=== PATIENT | female | born 1930 | race Caucasian/White ===

== ENCOUNTER 2019-10-16 22:43 | Inpatient (IN) | payer OTHER, MEDICAID ==
[~2019-10-16] VITALS: Ht 175.3 cm; Wt 80.1 kg
[~2019-10-16 22:43] MED LIST: ASPIRIN EC81 M1 PO; CALCIUM 500 WI1 EAC4 PO; COLACE100 MG PO; GLUMETZA1000 PO; GLYBURIDE 5 MG T5 M1 PO; LORTAB PO; MIRALAX17 GM PO; ONGLYZA5 MG PO; PEPCID AC10 M1 PO; SYNTHROID137 MC1 PO; VASOTEC2.5 MG PO; VITAMIN D325 MC1 PO; ZOCOR 20 MG TAB20 M1 PO
[2019-10-16 22:47] VITALS: BP 99/57
--- NOTE | 2019-10-16 22:50 | NUR ---
COULD NOT GET DL BALES FOR CONSENT FOR TREATMENT. LET CHARGE NURSE EMILIA KNOW.
[2019-10-16] MEDS ORDERED: LASIX 40 MG TAB40 MG PO (22:55)
[2019-10-16] MEDS ORDERED: DILTIAZEM ER180 M2 PO (22:55)
[2019-10-16] MEDS ORDERED: EXELON1 EAC2 TRANSDERM (22:56)
[2019-10-16] MEDS ORDERED: LISINOPRIL2.5 MG PO (22:56)
[2019-10-16] MEDS ORDERED: REMERON15 M2 PO (22:57)
[2019-10-16] MEDS ORDERED: TYLENOL325 MG PO (22:57)
[2019-10-16 23:18] LABS: ABSOLUTE LYMPHOCYTES 0.5 thou/uL (0.8-5.3); ABSOLUTE MONOCYTES 0.4 thou/uL (0.0-1.2); ABSOLUTE NEUTROPHILS 4.7 thou/uL (1.6-8.1); BASOPHILS 0.4 %; EOSINOPHILS 0.1 %; HEMATOCRIT 40.5 % (37.0-47.0); LYMPHOCYTES 8.8 %; MCH 32.1 pg (26.0-34.0); MCHC 34.6 g/dL (28.0-37.0); MCV 92.6 fL (80.0-100.0); MONOCYTES 7.7 %; MPV 8.8 fl. (7.2-11.1); NUCLEATED RBCS 0 /100WBC; PLATELET COUNT* 259 thou/uL (150-400); RBC 4.38 mil/uL (4.20-5.00); RDW-CV 14.2 % (10.5-14.5); WBC 5.6 thou/uL (4.0-11.0)
[2019-10-16 23:24] LABS: CALCIUM 8.1 mg/dL (8.5-10.1); CREATININE 2.3 mg/dL (0.6-1.3); POTASSIUM 4.1 mmol/L (3.5-5.1)
[2019-10-16 23:36] LABS: ALBUMIN 2.5 g/dL (3.4-5.0); MAGNESIUM 1.9 mg/dL (1.8-2.4); TOTAL BILIRUBIN 0.5 mg/dL (<0.1-1.0); TOTAL PROTEIN 6.7 g/dL (6.4-8.2)
[2019-10-17 01:10] LABS: URINE BILIRUBIN NEGATIVE (Negative); URINE BLOOD TRACE (Negative); URINE CLARITY CLEAR; URINE COLOR YELLOW; URINE GLUCOSE-RANDOM NEGATIVE (Negative); URINE KETONES TRACE (Negative); URINE LEUKOCYTES-REFLEX 1+ (Negative); URINE PROTEIN NEGATIVE (Negative); URINE UROBILINOGEN 0.2 E.U./dl (0.2-1.0)
[2019-10-17 01:18] LABS: URINE NITRITE-REFLEX POSITIVE (Negative)
[2019-10-17 02:05] LABS: SQUAMOUS 4-10 Moderate /LPF (0-3); URINE RBC 3-10 Few /HPF (0-2)
[2019-10-17 02:06] LABS: AMORPHOUS URATES Moderate /LPF (None Seen); BACTERIA-REFLEX >30 Many /HPF (None Seen); CASTS None Seen /LPF (None Seen)
[2019-10-17 03:25] VITALS: BP 125/60
[2019-10-17 03:40] VITALS: BP 91/46
[2019-10-17 03:50] VITALS: BP 125/60
[2019-10-17] MEDS ORDERED: DIFLUCAN150 MG PO (05:38)
[2019-10-17] MEDS ORDERED: SENNA PLUS TAB1 EACH PO (05:38)
--- NOTE | 2019-10-17 06:15 | NUR ---
PATIENT ARRIVED TO UNIT FROM ER BY CART IN STABLE CONDITION AT 0345. UNABLE TO STAND TO TRANSFER TO BED. PATIENT ORIENTED TO NAME AND DATE OF . ALSO AWARE WHY SHE CAME TO THE HOSPITAL. MULTPLE PRESSURE ULCERS. (COCCYX, BILAT BUTTICKS-THIGH CREASE AND LATERAL RIGHT ANKLE.) AREAS ON BUTTOCKS AND COCCYX DRESSED AFTER ASSESSMENT AND PHOTOS. ALSO HAS A YEASTY RASH UNDER BREASTS AND GROIN CREASES. HEELS RED AND BOGGY BUT BLANCHABLE. VITAL SIGNS STABLE. AFEBRILE. INCONT BOWEL AND BLADDER. ADMISSION ROUTINES IN PROGRESS. CONTINUE TO MONITOR. FALL PRECAUTIONS IN PLACE.
[2019-10-17 08:28] LABS: CALCIUM 7.3 mg/dL (8.5-10.1); CREATININE 2.1 mg/dL (0.6-1.3); MAGNESIUM 1.9 mg/dL (1.8-2.4); POTASSIUM 3.5 mmol/L (3.5-5.1)
[2019-10-17 09:11] VITALS: BP 115/56
[2019-10-17 15:59] VITALS: BP 116/38
--- NOTE | 2019-10-17 16:47 | NUR ---
PATIENT INCONTINENT OF LARGE AMOUNTS OF URINE THIS SHIFT. IVF INFUSING, PATIENT NOTED TO HAVE PULLED IV OUT. SPOKE WITH DR. MARTINEZ AND OK TO LEAVE IV OUT. PO ABX TO START TONIGHT FOR UTI. TURNED Q2. PATIENT ASSISTED WITH FEEDING. PATIENT ATTEMPTED TO CALL HER SON BUT NO ANSWER. [employer] OFFICER TRACING SINUS RHYTHM/SINUS JUSTIN. COVID PENDING. VITALS STABLE.
[2019-10-17 20:00] VITALS: BP 122/58
[2019-10-18] VITALS: BP 100/48
--- NOTE | 2019-10-18 01:23 | NUR ---
PT ALERT ORIENTED TO SELF. CONFUSED AND CALLS HELP FREQUENTLY. PT TOOK PILLS CRUSHED IN APPLE SAUCE. TURN Q 2 HRS. TELEMETRY SHOWS SR. PT REMOVES TELEMETRY FREQUENTLY. LEADS PLACED ON BACK. [facility]
[2019-10-18 04:00] VITALS: BP 132/52
[2019-10-18 05:43] LABS: CALCIUM 7.9 mg/dL (8.5-10.1); MAGNESIUM 1.9 mg/dL (1.8-2.4); POTASSIUM 3.9 mmol/L (3.5-5.1)
[2019-10-18 08:00] VITALS: BP 112/46
--- NOTE | 2019-10-18 11:04 | NUR ---
WOUND NURSE: PATIENT SEEN TO ADDRESS SKIN LESIONS: RIGHT ANKLE PRESENTS A HEALING STAGE 2 PRESSURE INJURY ON TRI RIGHT LATERAL MALLEOLUS. PRSENTS A DRIED BLISTER WITH NO ACTIVE DRAINAGE AND MEASURES 0.8 X 0.7 X 0.1 CM. PERIWOUND AREA WITH NO REDNESS OR WARMTH. CAPILLARY REFILL IS < 3 SECONDS. CLEANSED WITH SALINE AND APPLIED AQUACEL AG MOISTENED WITH SALINE, THEN COVERED WITH BORDERED FOAM DRESSING. RIGHT UPPPER THIGH WITH A SUPERFICIAL ABRASION MEASURING 0.2 X 0.2 X 0.1 CM AND DRAINING A SMALL AMOUNT OF SEROUS DRAINAGE. WOUND BED IS PINK AND NONGRANULATING. LEFT BUTTCK STAGE 2 PRESSURE INJURY MEASURING 0.3 X 1.0 X 0.1 CM, DRAINING SMALL AMOUNT OF SEROUS DRAINAGE. COCCYX STAGE 3 PRESSURE INJURY MEASURING 0.8 X 0.5 X 0.2 CM, CONTAINS 50% YELLOW SLOUGH, 50% PINKISH-RED GRANULATION TISSUE. SMALL AMOUNT OF SEROUS DRAINAGE. PATIENT INSTRUCTED ON NEED TO REPOSITION HERSELF EVERY 1 TO 2 HOURS TO PROMOTE HEALNG. PATIENT IS CONFUSED AND DISORIENTED AND FOLLOW UP INSTRUCTION WILL BE NECESSARY.
[2019-10-18 12:34] VITALS: BP 122/52
--- NOTE | 2019-10-18 14:51 | EKG ---
[place] [address] ELECTROCARDIOGRAM REPORT Name: RUBEN YEAGER Room: [address]#: [id number] Admission: 10/17/19 Attend Phys: Nav Peguero, Discharge: Date of : 34 Date of Service: 10/16/19 2248 Report #: [id number] THIS REPORT FOR: //name// [facility] ED Test Date: 2019-10-16 Test Time: 22:48:22 Pat Name: RUBEN YEAGER Department: Room: [facility] Gender: F Infrastructure Technician: : [id number] Requested By: Samantha Bustos Order Number: [id number] MD: Ajith Gaston Measurements Intervals [place] Rate: 76 P: -27 HI: 183 QRS: -36 QRSD: 94 T: 31 QT: 467 QTc: 526 Interpretive Statements Sinus rhythm Left axis deviation Low voltage, precordial leads Prolonged QT interval Compared to ECG 09/25/2010 07:25:55 Left-axis deviation now present Prolonged QT interval now present Electronically Signed On 10-18-2019 14:50:13 CDT by Ajith Gaston [email or web address] <ELECTRONICALLY SIGNED> By: Ajith Gaston MD, FAC 10/18/19 1450 2248 2248 Ajith Gaston MD, FAC /EPI
--- NOTE | 2019-10-18 17:11 | NUR ---
SPOKE WITH [facility]. PT.IS A USP CARE PT.THERE. SHE IS WC BOUND. SHE IS A SIT TO STAND LIFT TO TRANSFER INTO WC. SHE FEELS HERSELF. IS CONFUSED AT TIMES. SON,LORENZO, IS HER DPOA. SANJANA WILL FAX COPY OF DPOA TO TO PUT ON PT.S CHART. ATTEMPTED TO CALL LORENZO, BUT NO ANSWER. LEFT VM.
[2019-10-18 17:17] VITALS: BP 142/65; BP 145/65
[2019-10-18 20:30] VITALS: BP 125/46
[2019-10-19 04:00] VITALS: BP 116/53
--- NOTE | 2019-10-19 07:18 | NUR ---
PT ORIENTED TO SELF. ONLY. REFUSING TO WEAR HEART MONITOR LEADS MOST OF SHIFT. SKIN IRRITATION NOTIFED WHERE LEADS HAD BEEN. HYPOALLERGENIC LEADS PLACED ON PT. PT SEEMED MORE COMFOTRABLE. INCONTINENT PERICARE DONE AND CHANGED THIS AM. PT CAME BACK COVID POSITIVE THIS AM. HOURLY ROUNDING FOR SAFETY.
[2019-10-19 08:00] VITALS: BP 98/63
[2019-10-19 09:53] LABS: ABSOLUTE LYMPHOCYTES 0.8 thou/uL (0.8-5.3); ABSOLUTE MONOCYTES 0.5 thou/uL (0.0-1.2); ABSOLUTE NEUTROPHILS 4.5 thou/uL (1.6-8.1); BASOPHILS 0.5 %; EOSINOPHILS 0.1 %; HEMATOCRIT 39.9 % (37.0-47.0); HEMOGLOBIN 13.8 gm/dL (12.0-15.0); LYMPHOCYTES 13.8 %; MCH 32.1 pg (26.0-34.0); MCHC 34.7 g/dL (28.0-37.0); MCV 92.3 fL (80.0-100.0); MONOCYTES 8.8 %; MPV 8.6 fl. (7.2-11.1); NUCLEATED RBCS 0 /100WBC; PLATELET COUNT* 291 thou/uL (150-400); POLYS 76.8 %; RBC 4.32 mil/uL (4.20-5.00); RDW-CV 14.3 % (10.5-14.5); WBC 5.8 thou/uL (4.0-11.0)
[2019-10-19 14:42] VITALS: BP 100/44
--- NOTE | 2019-10-19 16:05 | EKG ---
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: : [id number] Requested By: Nav Peguero Order Number: [id number] Reading MD: Ajith Gaston Measurements Intervals [place] Rate: 63 P: MI: QRS: -35 QRSD: 90 T: -16 QT: 457 QTc: 468 Interpretive Statements sinus rhythm Left axis deviation Low voltage, precordial leads Consider anterior infarct Borderline T abnormalities, inferior leads Compared to ECG 10/16/2019 22:48:22 Myocardial infarct finding now suggested T-wave abnormality now present Prolonged QT interval no longer present Electronically Signed On 10-19-2019 16:03:54 CDT by Ajith Gaston [email or web address] <ELECTRONICALLY SIGNED> By: Ajith Gaston MD, [facility] 10/19/19 1603 3 3 Ajith Gaston MD, [facility] /EPI
--- NOTE | 2019-10-19 16:52 | NUR ---
PT PROGRESSING TOWARDS GOALS THIS SHIFT. COVID TEST CAME BACK THIS AM WITH POSITIVE RESULTS. PT CONTINUES ON ENHANCED PRECAUTIONS. EKG OBTAINED AND PHYSICIAN NOTIFIED THAT PT'S QT PROLONGED AND PT WAS NOT STARTED ON PLAQUENIL THIS SHIFT. PT'S BLOOD PRESSURES SOFT THIS SHIFT. AM DOSE CARDIZEM HELD THIS AM. TELE SB TO SR. PT ON 2L OXYGEN THIS AM BUT PT REMOVED HERSELF. FOLLOW UP WITH OXYGEN ON RA WAS 94%. PT CONTINUES ON RA AT THIS TIME. NO OTHER CONCERNS AT THIS TIME. CLWR. WCTM.
[2019-10-19 20:00] VITALS: BP 150/70
--- NOTE | 2019-10-20 03:57 | NUR ---
ASSUMED CARE AT 1900H, ON ROOM AIR AND TOLERATED. STILL CONFUSED AND AGITATED SOMETIMES. KEPT SAFE. REORIENT MUCH POSSIBLE. PT KEEP ON REMOVING HER GOWN AND MONITOR LEADS.C CONTINUE MONITORING AND TOWARD GOALS.
[2019-10-20 04:00] VITALS: BP 138/66
[2019-10-20 06:23] LABS: HEMATOCRIT 43.8 % (37.0-47.0); HEMOGLOBIN 14.9 gm/dL (12.0-15.0); MCH 32.1 pg (26.0-34.0); MCHC 34.1 g/dL (28.0-37.0); MCV 94.1 fL (80.0-100.0); MPV 8.5 fl. (7.2-11.1); RBC 4.66 mil/uL (4.20-5.00); RDW-CV 14.5 % (10.5-14.5); WBC 6.5 thou/uL (4.0-11.0)
[2019-10-20 06:44] LABS: ALBUMIN 2.4 g/dL (3.4-5.0); CALCIUM 8.5 mg/dL (8.5-10.1); CREATININE 1.9 mg/dL (0.6-1.3); POTASSIUM 4.5 mmol/L (3.5-5.1); TOTAL BILIRUBIN 0.5 mg/dL (<0.1-1.0); TOTAL PROTEIN 6.5 g/dL (6.4-8.2)
[2019-10-20 08:45] VITALS: BP 115/53
[2019-10-20 12:43] VITALS: BP 145/54
--- NOTE | 2019-10-20 15:22 | NUR ---
SW/CM continuing to follow. Pt to dc back to [facility] whenever ready, maybe anticipate dc in 1 to 2 days. [facility] [phone]
--- NOTE | 2019-10-20 15:48 | NUR ---
PT PROGRESSING TOWARDS GOALS THIS SHIFT. TOLERATING RA MAINTAINING SATURATIONS AROUND 94%. ENCOURAGING ORAL FLUIDS D/T NO IV ACCESS. PT CONTINUES TO HAVE POOR APPETITE. AFEBRILE THIS SHIFT. NO OTHER CONCERNS AT THIS TIME. CLWR. WCTM.
[2019-10-20 16:35] VITALS: BP 135/55
--- NOTE | 2019-10-20 17:32 | EKG ---
[place] [address] ELECTROCARDIOGRAM REPORT Name: RUBEN YEAGER Room: [address] ADM IN M.R.#: [id number] Admission: 10/19/19 Attend Phys: Nav Peguero, Discharge: Date of : 34 Date of Service: 10/20/19 1255 Report #: [id number] THIS REPORT FOR: //name// [facility] ED Test Date: 2019-10-20 Test Time: 12:55:06 Pat Name: RUBEN YEAGER Department: Room: [address] Gender: F Pharmacy Clinical Specialist: BRICE : [id number] Requested By: Dolores Monte Order Number: [id number] Taylor MD: Josh Acuna Measurements Intervals [place] Rate: 76 P: 63 KS: 175 QRS: -36 QRSD: 86 T: 40 QT: 405 QTc: 456 Interpretive Statements Sinus rhythm Left axis deviation Low voltage, precordial leads Consider anterior infarct Compared to ECG 10/19/2019 09:24:01 T-wave abnormality no longer present Myocardial infarct finding still present Electronically Signed On 10-20-2019 17:30:45 CDT by Josh Acuna [email or web address] <ELECTRONICALLY SIGNED> By: Josh Acuna MD, FACC 10/20/19 1730 1255 1255 Josh Acuna MD, FACC /EPI
[2019-10-20 20:30] VITALS: BP 111/55
[2019-10-21] VITALS: BP 103/50
[2019-10-21 04:00] VITALS: BP 131/62
--- NOTE | 2019-10-21 04:56 | NUR ---
PT ONLY ORIENTED TO SELF AND WHEN ALERT. SLEPT THROUGH THE NIGHT, UNCOOPERATIVE. DID NOT WANT TO SWALLOW PILLS, CRUSHED PILLS AND GAVE SOME OF IT WITH APPLE SAUCE, BUT PATIENT QUICKLY REFUSED THAT TOO. VERY AGITATED, SWINGS ARMS AND STATES "JUST LEAVE ME ALONE. I JUST WANT TO SLEEP". WOULDN'T LET RN TAKE BLOOD FROM HER THIS AM. OTHERWISE UNEVENTFUL NIGHT. PT INCONTINENT, NO BM. Q2 TURNS FOR SKIN INTEGRITY. WILL CONTINUE MONITORING.
--- NOTE | 2019-10-21 15:32 | NUR ---
SW spoke with [facility] admissions about dc planning and they are able to accept pt back home tomorrow.
[2019-10-21 16:00] VITALS: BP 124/50
--- NOTE | 2019-10-21 19:00 | NUR ---
PATIENT REFUSING ASSESSMENT THIS AM. PATIENT STATES "LEAVE ME ALONE, GET OUT OF HERE." NO ACUTE DISTRESS NOTED. PATIENT DRINKING WATER AND ENSURE WHEN PROMPTED. PREFERS TO LAY ON LEFT SIDE, EVEN W/ REPOSITIONING. PATIENT PULLED TELE LEADS OFF THIS AFTERNOON. PATIENT TAKING OFF GOWN FREQUENTLY THRU SHIFT. REORIENTED AND REDRESSED WHEN NEEDED. REFUSED LAB DRAW ATTEMPT THIS AFTERNOON. PATIENT IMPULSIVE AT TIMES, SWINGING HAND AT NURSE. BEDREST THRU SHIFT. ISO PRECAUTIONS MAINTAINED. ~TJRN
[2019-10-21 20:00] VITALS: BP 130/61
[2019-10-22 00:21] VITALS: BP 102/57
[2019-10-22 04:08] VITALS: BP 122/61
[2019-10-22 05:05] LABS: INR 1.2
[2019-10-22 05:11] LABS: CALCIUM 8.3 mg/dL (8.5-10.1); CREATININE 1.8 mg/dL (0.6-1.3); MAGNESIUM 2.3 mg/dL (1.8-2.4); PHOSPHORUS* 3.2 mg/dL (2.5-4.9)
[2019-10-22 05:17] LABS: PREALBUMIN 8.6 mg/dL (18.0-35.7)
--- NOTE | 2019-10-22 05:24 | NUR ---
PATIENT ALERT AND ORIENTED X 1. RESTING QUIETLY ON HOURLY ROUNDS. TURNED Q2H. PATIENT RESISTIVE AT TIMES WITH CARES. TOOK OFF GOWN AND TELE ELECTRODES MULTIPLE TIMES. TOOK ONLY PART OF SHIFTS ORAL MEDICATIONS. LAB DRAW ORDERED YESTERDAY HAD BEEN REFUSED. WAS ABLE TO DRAW THIS AM. INCONT URINE. LIEN-CARE PROVIDED. DRESSINGS PRESENT TO SKIN ULCERS. TAKING ORAL FLUIDS. FALL PRECAUTIONS IN PLACE. CO-VID ISOLATION. CONTINUE TO MONITOR.
--- NOTE | 2019-10-22 09:04 | NUR ---
PT ORDERS RECEIVED AND ACKNOWLEDGED. PT WAS INITIALLY EVALUATED BY PT SERVICES ON 10/18/19. PT WAS NOTED TO BE AT BASELINE AT THAT TIME AND DISCHARGED FROM ACUTE PT SERVICES. NO CHANGE IN PT'S STATUS NOTED THEREFORE WILL DISCHARGE FROM PT DUE TO PT AT BASELINE STATUS.
[2019-10-22 10:45] VITALS: BP 112/55
[2019-10-22] MEDS ORDERED: AZITHROMYCIN 2250 MG PO (12:15)
[2019-10-22] MEDS ORDERED: HYDROXYCHLOROQ200 M1 PO (12:15)
--- NOTE | 2019-10-22 12:42 | NUR ---
Pt to dc home today to [facility]. DORI faxed dc summary/orders/med list to admissions at [facility] and spoke with Robyn who is accepting pt back home. DORI arranged ride through [facility] for Covid positive precautions and informed pt to arrive at [place] entrance of facility. Arranged for picker feeder between 1 to 1:30 pm. DORI called pt son who did not answer; DORI left dc details in voicemail message for pt son.
--- NOTE | 2019-10-22 14:15 | NUR ---
PATIENT DISCHARGED PER W/ TRANSPORT PERSONNEL TO RETURN TO [facility]. REPORT CALLED TO CARE CENTER STAFF. BELONINGS WITH PATIENT. NO S/S ACUTE DISTRESS NOTED. ~TJRN
== END 2019-10-22 14:15 | DRG 177 ==
LOC: M.ERS 22:43 → M.ORTHSURG 10-17 01:33 → M.TBA-ER 10-17 01:33 → M.ORTHSURG 10-17 02:35
PROVIDERS: Emergency Medicine; Family Medicine; ADMIT Internal Medicine
DX: U07.1 COVID-19 (principal); N17.0 Acute kidney failure with tubular necrosis; J12.89 Other viral pneumonia; J96.01 Acute respiratory failure with hypoxia; N30.01 Acute cystitis with hematuria; F03.90 Unspecified dementia, unspecified severity, without behavioral disturbance, psychotic disturbance, mood disturbance, and anxiety; E11.22 Type 2 diabetes mellitus with diabetic chronic kidney disease; N18.9 Chronic kidney disease, unspecified; I12.9 Hypertensive chronic kidney disease with stage 1 through stage 4 chronic kidney disease, or unspecified chronic kidney disease; E03.9 Hypothyroidism, unspecified; M17.11 Unilateral primary osteoarthritis, right knee; F32.9 Major depressive disorder, single episode, unspecified; E55.9 Vitamin D deficiency, unspecified; E53.8 Deficiency of other specified B group vitamins; Z90.49 Acquired absence of other specified parts of digestive tract; Z88.0 Allergy status to penicillin; Z79.899 Other long term (current) drug therapy; Z79.82 Long term (current) use of aspirin

== ENCOUNTER 2019-10-25 17:06 | Inpatient (IN) | payer OTHER, MEDICAID ==
[~2019-10-25] VITALS: Ht 157.5 cm; Wt 79.4 kg
--- NOTE | ~2019-10-25 | CON ---
[address] [address] CONSULTATION Name: RUBEN YEAGER Room: [address] ADM IN M.R.#: [id number] Admission: 10/25/19 Attend Phys: Kamini Leyva Discharge: Date of : 34 Report #: [id number] THIS REPORT FOR: //name// cc: Lennox Sorto MD, Dennis R MD ~ THIS REPORT FOR: //name// CC: Lennox Aquino NEPHROLOGY CONSULTATION CONSULTING PHYSICIAN: Bobby Aquino DO REASON FOR CONSULTATION: Acute kidney injury. HISTORY OF PRESENT ILLNESS: An 88-year-old female admitted from a nursing facility with concerns for ongoing signs or symptoms of COVID-19 infection. She was tested positive 2 weeks ago, treated with azithromycin and hydroxychloroquine. She was significantly hypotensive, started on dopamine, had some mild hypoxia as well and was admitted to the ICU. She has underlying dementia. History is obtained largely through chart review. Due to ongoing COVID-19 pandemic, patient was not directly examined in order to minimize contact exposures and to preserve PPE. Case was discussed with ICU nurse and Dr. Aquino in detail. REVIEW OF SYSTEMS: As per chart review, constitutional, psych, heme, eyes, ENT, respiratory, cardiac, GI, , endocrine, all negative except as documented above. FAMILY HISTORY: Noncontributory in this 88-year-old female. SOCIAL HISTORY: No tobacco. She is in a nursing facility. PAST MEDICAL HISTORY: Dementia, diabetes, osteoporosis, hypothyroidism, depression. CURRENT MEDICATIONS: Reviewed. PHYSICAL EXAMINATION: VITAL SIGNS: Blood pressure is 117/53, pulse 73, respirations 25, temperature 36.5. GENERAL: She is seen through the glass door of the ICU. She is in no distress. Her eyes are open. CARDIOVASCULAR: She has a regular rate. LUNGS: PSYCHIATRIC: Her breathing does [place] to [place] [address] CONSULTATION Name: RUBEN YEAGER Room: [address] IN [facility]#: [id number] Admission: 10/25/19 Attend Phys: Kamini Leyva Discharge: Date of : 32 Report #: [id number] GENITOURINARY: She has a Nuno catheter in place. LABORATORY DATA: White cell count 12.9, hemoglobin is 15.2, platelets are 600. Sodium is 138, potassium 4.1, chloride 98, bicarbonate 24, BUN 62, creatinine 4.4, glucose 469, calcium 9.3. CK was 542 and albumin 2.7. These labs were done yesterday. ASSESSMENT: 1. Acute kidney injury with admission creatinine of 4.4 in the setting of COVID-19 infection, MAURICE inhibitor, Lasix, hypotension, elevated CK. UA noted. 2. Shock, septic. 3. Elevated CK of 542. 4. Hypoalbuminemia with an albumin of 2.7. 5. Hematuria. 6. COVID-19 positive from 10/17/2019 and was treated with azithromycin and hydroxychloroquine. 7. Non-insulin dependent diabetes. 8. Dementia. 9. Osteoporosis. PLAN: In reviewing previous labs, her creatinine was 1.8 on 10/22/2019 and 2.3 on 10/16/2019, prior values are not available. She has rather significant acute kidney injury. She is making urine. We will order labs to be done now and have nursing contact me with those results. We will also check a CK. She is on antibiotics as well as vasopressor. We will discontinue Lasix and lisinopril from her AUG. I did try to contact her son to update him, but was unable to reach him. Infectious Disease is following closely. Convalescent plasma is being considered. She will need better blood sugar control, currently on IV fluids as well as dopamine. Renal ultrasound can be done at a later time as it is not urgent at this time. Case was discussed with Dr. Aquino. She may need CRRT pending outcome of labs, but given her underlying dementia, I would recommend a less aggressive approach. Code status is unclear at this time. I did discuss with ICU nurse and advanced directive and code status information will be obtained from nursing facility. The patient is critically ill. Thirty-five minutes of critical care time was spent. Thank you for requesting my opinion in the care and management of this patient. By: [id number] Ramin Maldonado MD /nt
[~2019-10-25 17:06] MED LIST changes: +AZITHROMYCIN 2250 MG PO; +DIFLUCAN150 MG PO; +DILTIAZEM ER180 M2 PO; +EXELON1 EAC2 TRANSDERM; +HYDROXYCHLOROQ200 M1 PO; +LASIX 40 MG TAB40 MG PO; +LISINOPRIL2.5 MG PO; +REMERON15 M2 PO; +SENNA PLUS TAB1 EACH PO; +TYLENOL325 MG PO
[2019-10-25 17:13] VITALS: BP 153/136
[2019-10-25 17:45] LABS: HEMOGLOBIN 15.2 gm/dL (12.0-15.0); MCH 31.5 pg (26.0-34.0); MCHC 34.5 g/dL (28.0-37.0); MCV 91.3 fL (80.0-100.0); MPV 9.5 fl. (7.2-11.1); NUCLEATED RBCS 0 /100WBC; PLATELET COUNT* 600 thou/uL (150-400); RBC 4.81 mil/uL (4.20-5.00); RDW-CV 14.1 % (10.5-14.5); WBC 12.9 thou/uL (4.0-11.0)
[2019-10-25 17:56] LABS: APTT 28.9 Seconds (25.0-31.3); CALCIUM 9.3 mg/dL (8.5-10.1); CREATININE 4.4 mg/dL (0.6-1.3); INR 1.1; POTASSIUM 4.1 mmol/L (3.5-5.1); PROTIME 11.7 Seconds (9.20-11.50)
[2019-10-25] MEDS ORDERED: ATIVAN0.5 M1 PO (18:07)
[2019-10-25 18:10] LABS: ALBUMIN 2.7 g/dL (3.4-5.0); CK-MB MASS 12.1 ng/mL (<0.5-3.6); TOTAL BILIRUBIN 0.3 mg/dL (<0.1-1.0); TOTAL PROTEIN 8.3 g/dL (6.4-8.2)
[2019-10-25 18:16] LABS: ABSOLUTE EOSINOPHILS 0.1 thou/uL (0.0-0.7); ABSOLUTE LYMPHOCYTES 1.5 thou/uL (0.8-5.3); ABSOLUTE MONOCYTES 0.6 thou/uL (0.0-1.2); ABSOLUTE NEUTROPHILS 10.6 thou/uL (1.6-8.1); PLATELET ESTIMATE INCREASED
[2019-10-25 19:35] VITALS: BP 112/50
[2019-10-25 23:35] VITALS: BP 102/46
--- NOTE | 2019-10-26 00:35 | NUR ---
PT ADMITTED TO 105 @ 1999. PT SLEEPING. CONFUSION. DEMENTIA. ADMISSION HX AND ASSESSMENT DOCUMENTED MOST POSSIBLE. PT NON CONTRIBUTORY WITH ADMISSION HX. CONSENTS NOT SIGNED DUE TO AMS. NURSING TO CALL SON IN THE AM TO OBTAIN CONSENT. WILL CONTINUE TO MONITOR.
[2019-10-26 04:00] VITALS: BP 107/50
--- NOTE | 2019-10-26 06:52 | NUR ---
PT SLEPT MOST OF SHIFT. CAN GET COMBATIVE WHEN TRYING TO PROVIDE CARE. PT INCONTINENT OF BLADDER. PT SPIT MEDS OUT. WOUND DRESSING NOTED TO RT ANKLE. PT NONVERBAL THIS SHIFT. FALL PRECAUTION IN PLACE. WILL CONTINUE TO MONITOR.
[2019-10-26 08:43] VITALS: BP 90/70
--- NOTE | 2019-10-26 09:50 | NUR ---
PT.KNOW FROM RECENT HOSPITAL ADMISSION. SHE IS A [facility]LTER C[facility] RESIDENT OF [facility]. TESTED COVID 19 POSITIVE 2 WEEKS AGO. DISCHARGED BACK TO [facility] ON 10/21. RETURN WITH WORSE AMS,COUGH, SOA. WILL NOTIFY [facility] WHEN CLOSER TO DISCHARGE. OBTAINED DPOA FROM [employer] AND FAXED TO FLOOR TO PUT ON CHART. LEFT FOR DPOA/SON,LORENZO.
--- NOTE | 2019-10-26 13:03 | CON ---
[address] [address] CONSULTATION Name: RUBEN YEAGER Room: [address] ADM IN M.R.#: [id number] Admission: 10/25/19 Attend Phys: Kamini Leyva Discharge: Date of : 32 Report #: [id number] THIS REPORT FOR: //name// cc: Lennox Sorto MD, Dennis R MD ~ THIS REPORT FOR: //name// CC: Lennox Aquino DATE OF SERVICE: 10/26/2019 INFECTIOUS DISEASE CONSULTATION ATTENDING PHYSICIAN: Dr. Bobby Aquino. REASON FOR EVALUATION: COVID-19 infection. HISTORY OF PRESENT ILLNESS: Chart reviewed, patient examined. This is an 88-year-old woman with extensive medical history including diabetes mellitus, also has dementia, this apparently fairly profound, who was admitted through the Emergency Room with concerns about ongoing signs and symptoms related to COVID-19 infection. She was confirmed to be positive 2 weeks ago. She has been on combination therapy with hydroxychloroquine as well as azithromycin in the interim. She was found to be borderline hypoxemic; however, she was 94% on room air when rechecked. She is quite uncomfortable, although apparently has been coughing. She does eat in small amounts. Really has no evidence, she is oriented to even her person. She has been afebrile. ALLERGIES: LISTED TO PENICILLINS. CURRENT MEDICATIONS: Include fluconazole, furosemide, diltiazem CD, cholecalciferol, aspirin, ceftriaxone, levothyroxine, hydroxychloroquine, mirtazapine, lisinopril, calcium carbonate, lorazepam, azithromycin, p.r.n. analgesics. PAST MEDICAL HISTORY: As described above, dementia being most notable, diabetes mellitus, osteoporosis, hypothyroidism, chronic renal insufficiency, depression. SOCIAL HISTORY: Nonsmoker, no ethanol, no illicit drug use. FAMILY HISTORY: Noncontributory. REVIEW OF SYSTEMS: Unobtainable. PHYSICAL EXAMINATION: [place] [address] CONSULTATION Name: RUBEN YEAGER Room: [address] IN [facility].#: [id number] Admission: 10/25/19 Attend Phys: Kamini Leyva Discharge: Date of : 32 Report #: [id number] GENERAL: She is in moderate distress, unable to be redirected. It is not clear if she has had any comprehension, unable to be engaged, appears chronically ill, undernourished. VITAL SIGNS: Temperature 97.5, pulse 76, respirations 18, blood pressure 112/63. SKIN: Warm, dry, no rashes. HEENT: Normocephalic. NECK: Appears to be supple. LUNGS: Diminished breath sounds. Few scattered crackles. HEART: Regular. I do not appreciate murmur. ABDOMEN: Soft. There are no apparent peritoneal signs. GENITOURINARY: Deferred. RECTAL: Deferred. LABORATORY DATA: Lactic acid initially 3.9, repeat this morning 0.6. Prealbumin of 13.6. Blood cultures collected on admission on 10/24, sterile thus far. Troponin less than 0.06. Chest x-ray showed cardiomegaly without failure, persistent stable peripheral lung opacities. CBC: White count of 12.9, H and H 15.2 and 44, platelets of 600. There is a absolute lymphocyte count of 1500. Electrolytes: Sodium 138, potassium 4.1, chloride 98, bicarbonate is 24, anion gap of 16, BUN and creatinine 62 and 4.4. Glucose of initially 469. LFTs unremarkable. Albumin of 2.7, total protein of 8.3. ASSESSMENT AND PLAN: COVID-19 infection with confirmed positive test on 10/16 and received hydroxychloroquine and azithromycin. Continue supportive measures. Consider convalescent plasma. We will discuss with Dr. Bull to see if that is available here at [place]'s availability. Continue supportive care. At this point, she is not requiring supplemental oxygen. Certainly, it is tenuous and high risk for infectious complications. We will continue the ceftriaxone. We will discontinue azithromycin. Monitor expectantly. <ELECTRONICALLY SIGNED> By: Yayo Ann MD 10/26/19 1303 1225 [id number] Ann MD /nt
--- NOTE | 2019-10-26 14:36 | EKG ---
[place] [address] ELECTROCARDIOGRAM REPORT Name: RUBEN YEAGER Room: [address] ADM IN M.R.#: [id number] Admission: 10/25/19 Attend Phys: Bobby Aquino Discharge: Date of : 34 Date of Service: 10/25/19 1716 Report #: [id number] THIS REPORT FOR: //name// [facility] ED Test Date: 2019-10-25 Test Time: 17:16:44 Pat Name: RUBEN YEAGER Department: Room: [facility] Gender: F Director Of Education: : 1930 Requested By: Alvarado Handley Order Number: [id number] MD: Fernie Gutierrez Measurements Intervals [place] Rate: 70 P: MI: QRS: -10 QRSD: 105 T: 38 QT: 485 QTc: 524 Interpretive Statements sinus rhythm artifact noted Low voltage, precordial leads Abnormal R-wave progression, late transition Prolonged QT interval Compared to ECG 10/20/2019 12:55:06 Prolonged QT interval now present Electronically Signed On 10-26-2019 14:34:41 CDT by Fernie Gutierrez [email or web address] <ELECTRONICALLY SIGNED> By: Fernie Gutierrez MD, [facility] 10/26/19 1434 1716 1716 Fernie Gutierrez MD, [facility] /EPI
[2019-10-26 17:13] VITALS: BP 118/55
--- NOTE | 2019-10-26 17:47 | NUR ---
ASSUMED CARE OF THE PT @ 0700. OPENS EYES WHEN NAME IS HEARD. PT ONLY MUMBLES WORDS. PT FUSSY AND COMBATIVE AT TIMES. PT REPOSITIONED FOR COMFORT EVERY TWO HOURS. LIEN CARE PRN. PT IS INCONTINENT OF B AND B. PT APPETITE IS POOR. PT IS A FEEDER. V/S WNL. DRESSING C/D/I/ TO LT ANKLE. PHOTOS TAKEN. RT FA IV PATENT THIS AM INFUSING NS @ 100CC/HR. PT PULLED IV OUT THE AFTERNOON. MIDLINE PLACED IN LT UPPER ARM. REMOVES ALL COTHING. PT KEPT COVERED WITH THE SHEETS. PT IS SR 1 DEGREE AVB. HR 60-90. PT IS RESTING AT THIS TIME WITH THE CALL LIGHT IN REACH BED LOW AND LOCKED. PT DOES NOT USE CALL LIGHT APPROPRIATELY. PT CHECK FRQUENTLY.
[2019-10-26 23:49] VITALS: BP 105/51
[2019-10-26 23:49] LABS: BE -3.2 mmol/L (-2 to +3); PCO2 VENOUS 31.1 mmHg (41.0-51.0); PO2 VENOUS 82.9 mmHg (35.0-45.0)
[2019-10-27] VITALS (63 sets, daily range): BP systolic 60–141; BP diastolic 29–71
[2019-10-27 01:00] LABS: URINE BILIRUBIN NEGATIVE (Negative); URINE BLOOD 2+ (Negative); URINE CLARITY CLEAR; URINE COLOR YELLOW; URINE GLUCOSE-RANDOM NEGATIVE (Negative); URINE KETONES NEGATIVE (Negative); URINE LEUKOCYTES-REFLEX NEGATIVE (Negative); URINE NITRITE-REFLEX NEGATIVE (Negative); URINE PROTEIN NEGATIVE (Negative); URINE UROBILINOGEN 0.2 E.U./dl (0.2-1.0)
[2019-10-27 02:19] LABS: SQUAMOUS 0-3 Few /LPF (0-3)
[2019-10-27 02:20] LABS: BACTERIA-REFLEX 1-9 Few /HPF (None Seen); CRYSTALS None Seen /LPF (None Seen); HYALINE CASTS 0-3 Few /LPF (None Seen); URINE RBC 3-10 Few /HPF (0-2); URINE WBC-REFLEX 0-5 Rare /HPF (0-5)
--- NOTE | 2019-10-27 07:07 | NUR ---
PT WAS SLEEPING @ BEGINNING OF SHIFT. DAY RN REPORTED PT HAD BEEN RESTLESS AND COMBATIVE AND HAD GIVEN HER ATIVAN THAT AFTERNOON. PT CONTINUED TO SLEEP THROUGH VITALS. RESPIRATIONS IN THE UPPER 30'S. DAY SHIFT UNABLE TO OBTAIN LABS R/T DIFFICULT STICK. PT HAD VERY MINIMAL RESPONSE TO PAIN. NOTIFIED. PT TRANSFERRED TO ICU. ABOVE FINDINGS PASSED ON.
--- NOTE | 2019-10-27 07:28 | NUR ---
PATIENT ON UNIT FROM [facility] AT 0020. PATIENT REMAINS DIFFICULT TO AROUSE AND UNRESPONSIVE THROUGH THE SHIFT. PATIENT'S BP DECREASED DURING THE SHIFT, STARTED PATIENT ON A DOPAMINE GTT AT 5 MCG/KG/MIN. NO PO MEDICATIONS GIVEN. VSS ON DOPAMINE GTT.
--- NOTE | 2019-10-27 10:18 | NUR ---
SW called and spoke with pt nurse Tami for ICU interdisciplinary rounds. Pt unresponsive except moans in response to pain. Remains covid positive. PICC line. [facility] resident readmitted. SW/CM to continue to follow to assist with safe dc planning.
--- NOTE | 2019-10-27 13:00 | NUR ---
RIGHT BASILKIC VESSEL ACCESSED FOR 5 SENE[place] TRIPLE LUMEN PICC. LINE PRE-TRIMMED TO 41 CM AND ADVANCED TO THE ZERO ZULY WITH NO RESISTANCE MET. UPPER ARM CIRCUMFERENCE ABOVE INSERTION SITE= 10 1/2". PATIENT CONFUSED WITH HISTORY OF DEMENTIA, MEDICAL NECESSITY DETERMINED BY DR. AQUINO. SHERLOICK MAGNET AND 3CG CONFIRMATION OF TIP TERMINATION AT THE CAVOATRIAL JUNCTION APPRECIATED. GUIDEWIRE REMOVED, LINE FLUSHED AND INSERTION SITE DRESSED. REPORT GIVEN TO MIRANDA BARNEY.
[2019-10-27 13:16] LABS: CALCIUM 7.9 mg/dL (8.5-10.1); PHOSPHORUS* 2.7 mg/dL (2.5-4.9); POTASSIUM 3.9 mmol/L (3.5-5.1)
[2019-10-27 13:21] LABS: CREATININE 2.4 mg/dL (0.6-1.3)
--- NOTE | 2019-10-27 16:00 | NUR ---
PT'S SON'S FILLER IN, EMILIE ([phone]) CALLED REGARDING UPDATES. WHEN ASKED ABOUT HER CODE STATUS, SHE STATED THAT HER SON IS NOT IN THE CONDITION TO MAKE DECISIONS FOR HER AND DON'T KNOW WHAT HAPPENS NEXT. SEDA MANDUJANO CALLED AND SHE HAS BEEN FULL CODE OVER THERE.
--- NOTE | 2019-10-27 18:27 | NUR ---
PT ONLY MOANS TO PAINFUL STIMULUS, VERY LETHARGIC AND SLEEPY THE WHOLE DAY. FEEDING ATTEMPTED BUT SHE WOULD NOT SWALLOW ANYTHING. PICC LINE INSERTED BY INFUSION NURSE, RT UPPER ARM. MIDLINE REMOVED. DOPAMINE CONTD AT 5 MCG/KG/MIN. NS AT 100 MLS/HR. UO 650 MLS, BMP IMPROVING. Q2 TURNS AND ORAL CARE GIVEN. BOOTS APPLIED B/L FEET.
[2019-10-28] VITALS (25 sets, daily range): BP systolic 89–178; BP diastolic 28–111
[2019-10-28 06:03] LABS: ALBUMIN 1.7 g/dL (3.4-5.0); CALCIUM 7.7 mg/dL (8.5-10.1); CREATININE 1.9 mg/dL (0.6-1.3); MAGNESIUM 1.8 mg/dL (1.8-2.4); PHOSPHORUS* 2.1 mg/dL (2.5-4.9); POTASSIUM 3.3 mmol/L (3.5-5.1)
--- NOTE | 2019-10-28 07:49 | NUR ---
ASSESSMENTS CHARTED. PATIENT LETHARGIC AND NONRESPONSIVE FOR MOST OF THE SHIFT. AROUND 0500 THE PATIENT BECAME INCREASINGLY ACTIVE AND BEGAN PULLING AT LINES AND YELLING "PLEASE" REPEATEDLY. THE PATIENT DID INFLICT A SKIN TEAR TO HER RIGHT ARM WHILE TRYING TO PULL AT LINES AND THE GOWN. PICTURE WAS TAKEN AND PLACED IN THE CHART. PATIENT OFF DOPAMINE AT 0500 BP STABLE.
--- NOTE | 2019-10-28 16:22 | NUR ---
INTERDISCIPLINARY ROUNDS: SPOKE WITH SAVITA MOON. SHE SAID PT.WAS CONFUSED AND AT TIMES COMBATIVE TODAY. SHE SAID PTS SON'S CAREGIVER CALLED TODAY TO GET AN UPDATE ON PT. FOR THE SON.
--- NOTE | 2019-10-28 17:37 | NUR ---
PT RESTLESS AND COMBATIVE THROUGH OUT THE DAY. YELLS OUT CONTINUOUSLY. PINCHES AND ATTEMPTS TO BITE. UNABLE TO MAKE NEEDS KNOWN. PULLED PICC LINE AND ZEPEDA CATHETER OUT THIS AM. NEW IV ACCESS OBTAINED. IVF INFUSING. INCONT OF B/B. PRN HALDOL GIVEN. PT DOES NOT APPEAR TO BE IN PAIN. PROGRESSING TOWARDS GOALS. ON ENHANCED PRECAUTIONS.
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
--- NOTE | 2019-10-29 07:43 | NUR ---
PATIENT REMAINS CONFUSING AND IMPULSIVE. PULLS AT LINES AND CLOTHES CONSTANTLY. PULLED OUT HER IV AT THE END OF SHIFT. NO IV ACCESS AT THIS TIME. ATTEMPTED TO DRAW LABS BUT COULD NOT BE DRAWN DUE TO POOR VENOUS ACCESS. NO SIGNIFICANT EVENTS THIS SHIFT
[2019-10-29 09:00] VITALS: BP 160/70
[2019-10-29 11:58] LABS: CALCIUM 8.1 mg/dL (8.5-10.1); CREATININE 1.6 mg/dL (0.6-1.3); POTASSIUM 3.3 mmol/L (3.5-5.1)
[2019-10-29 16:00] VITALS: BP 145/73
--- NOTE | 2019-10-29 17:00 | NUR ---
CALLED SON,LORENZO, TO UPDATE HIM ON HIS MOM. HE WAS AWARE SHE WAS IN ICU. EXPLAINED SHE WAS NOT EATING WELL,ETC. DISCUSSED HOSPICE WITH HIM. HE KNEW WHAT HOSPICE WAS. HE WANTED TO THINK ABOUT IT. HE SAID HE WOULD LIKE TO TALK WITH ABOUT IT. TOLD HIM I WOULD TELL HER NURSE TO HAVE CALL HIM AND HE SHOULD CALL HIM TOMORROW, SOMETIME. UPDATED SAVITA ELLINGTON.
--- NOTE | 2019-10-29 18:32 | NUR ---
pt agitated and confused during shift pulled out good purewick in place working and tolerating well. Two peripheral iv inserted via infusion nurse with ultrasound pt pulled them out within [address] rosales aware stated to place ng tube give free water bolus and boost ng placed and pt pulled out within [address] rosales aware iv placed in r foot intact tolerating spoke with case management they spoke with son fransisco about option son stated he wanted to speak with dr rosales tomorrow
[2019-10-29 22:00] VITALS: BP 150/90
--- NOTE | 2019-10-30 04:26 | NUR ---
ASSUMED CARE AT 1900H, ON RA AND TOLERATED. SEEN PT ON BED SLEEPING BUT ARROUSABLE. NO RESTRAIN. ORAL MEDS GIVEN MIXED WITH APPLESAUCE AND WITH ASPIRATION PRECATION. PT STILL CONFUSED AND ALWAYS ASKING FOR HELP. NO AGITATION NOTED AND NO DISTRESS. CONTINUE MONITORING AND TOWARD GOALS. KEPT SAFE.
[2019-10-30 05:40] LABS: ALBUMIN 1.9 g/dL (3.4-5.0); CALCIUM 7.9 mg/dL (8.5-10.1); CREATININE 1.5 mg/dL (0.6-1.3); MAGNESIUM 1.6 mg/dL (1.8-2.4); PHOSPHORUS* 1.6 mg/dL (2.5-4.9); POTASSIUM 3.5 mmol/L (3.5-5.1)
[2019-10-30 08:00] VITALS: BP 170/90
--- NOTE | 2019-10-30 18:58 | NUR ---
PT PROGRESSED TOWARD GOALS LESS AGITATED GAVE HALDOL/ATIVAN X1 TOLERATED WELL NOT AGITATED THROUGHOUT SHIFT DR AQUINO SPOKE WITH SON DL CHAUHAN WITH HOSPICE AND PT WILL BE DISCHARGED TO PRISON ON Friday11/01/2019. PT TOOK CRUSHED MEDS IN APPLESAUCE AND TWO DRINKS OF ENSURE THEN SPIT IT OUT AND SAID NO
[2019-10-30 21:45] VITALS: BP 160/90
--- NOTE | 2019-10-31 04:19 | NUR ---
ASSUMED CARE AT 1900H, ON RA AND TOLERATED. PT SEEN SLEEPING AND NOT AGITATED. ORAL MEDS GIVEN WITH ASPIRATION PRECAUTION. PT SLEPT WELL THE WHOLE NIGHT. ENCOURAGE TO DRINK MORE WATER AND EAT BUT PT REFUSED. TO BE TRANSFERED TO HOSPICE ON FRIDAY.CONTINUE MONITORING AND TOWARD GOALS.
[2019-10-31 08:00] VITALS: BP 145/70
--- NOTE | 2019-10-31 11:10 | NUR ---
PATIENT IS COVID CLEAR. REPORT CALLED TO [facility].
[2019-10-31 20:00] VITALS: BP 154/76
--- NOTE | 2019-11-01 05:50 | NUR ---
PATIENT RESTING IN BED FOR THE MAJORITY OF THE SHIFT. ATTEMPTED TO GIVE PATIENT PO MEDICATION CRUSHED IN PUDDING. PATIENT WAS ABLE TO SWALLOW 2 SPOONFULS BUT SPIT THE REST THAT WAS GIVEN OUT. PUREWICK CATHETER STILL IN PLACE AND FUNCTIONING PROPERLY. PATIENT PLANNED TO BE DISCHARGED TO [facility] DURING DAY SHIFT ON HOSPICE CARE. PATIENT IS ABLE TO RESPOND TO QUESTIONS INTERMITTENTLY, BUT IS DIFFICULT TO UNDERSTAND. NO SIGNIFICANT EVENTS THIS SHIFT.
[2019-11-01 08:00] VITALS: BP 146/70
--- NOTE | 2019-11-01 09:43 | NUR ---
ICU rounds: Pt continues to not eat, taking meds sometimes, incontinent. Covid positive. Possible dc back to [facility] with hospice. Nurse to discuss with when he rounds.
--- NOTE | 2019-11-01 14:23 | NUR ---
Pt discharging back to [facility] today, ambulance to peanut picker and transport at 3pm, CM updated Chip with [facility] of Pt's covid status. Updated nurse and son. Faxed dc orders. Son in agreement with hospice, referral faxed to [facility], they will initiate getting a contract signed and admit Pt to service today. Chart copied. Nurse report numbre is [phone]. Ambulance form faxed to ICU to be given to transport.
[2019-11-01 15:00] VITALS: BP 146/70
--- NOTE | 2019-11-01 15:41 | NUR ---
DISCHARGE TO [facility] ORDERED BY DR AQUINO. REPORT GIVEN TO SAVITA SINHA AT [facility]. SON, DL NOTIFIED BY CM. PT LEFT THE UNIT AT 1530 BY AMBULANCE.
== END 2019-11-01 15:30 | disposition hospice, home (50) | DRG 871 ==
LOC: M.ERS 17:06 → M.ICU 18:34 → M.ORTHSURG 18:34 → M.TBA-ER 18:34 → M.ORTHSURG 19:55 → M.ICU 10-26 23:51
PROVIDERS: Family Medicine; Internal Medicine; Internal Medicine Nephrology; Specialist; ADMIT Internal Medicine
PROC: 05HF33Z Insertion of Infusion Device into Left Cephalic Vein, Percutaneous Approach (ICD-10-PCS; principal; 2019-10-26)
PROC: B54NZZA Ultrasonography of Left Upper Extremity Veins, Guidance (ICD-10-PCS; principal; 2019-10-26)
PROC: 05HY33Z Insertion of Infusion Device into Upper Vein, Percutaneous Approach (ICD-10-PCS; 2019-10-27)
PROC: B54MZZA Ultrasonography of Right Upper Extremity Veins, Guidance (ICD-10-PCS; 2019-10-27)
DX: A41.9 Sepsis, unspecified organism (principal); U07.1 COVID-19; G93.41 Metabolic encephalopathy; J96.90 Respiratory failure, unspecified, unspecified whether with hypoxia or hypercapnia; J12.89 Other viral pneumonia; N17.9 Acute kidney failure, unspecified; E87.0 Hyperosmolality and hypernatremia; R65.20 Severe sepsis without septic shock; N18.3 Chronic kidney disease, stage 3 (moderate); I95.9 Hypotension, unspecified; F03.90 Unspecified dementia, unspecified severity, without behavioral disturbance, psychotic disturbance, mood disturbance, and anxiety; F32.9 Major depressive disorder, single episode, unspecified; L89.159 Pressure ulcer of sacral region, unspecified stage; E88.09 Other disorders of plasma-protein metabolism, not elsewhere classified; R31.9 Hematuria, unspecified; E11.22 Type 2 diabetes mellitus with diabetic chronic kidney disease; M81.0 Age-related osteoporosis without current pathological fracture; G47.00 Insomnia, unspecified; E03.9 Hypothyroidism, unspecified; Z90.49 Acquired absence of other specified parts of digestive tract; Z79.82 Long term (current) use of aspirin; Z79.899 Other long term (current) drug therapy; Z88.0 Allergy status to penicillin

== ENCOUNTER 2019-11-02 12:33 | Emergency (ER) | payer OTHER, MEDICAID ==
[~2019-11-02] VITALS: Ht 157.5 cm; Wt 77.1 kg
[~2019-11-02 12:33] MED LIST changes: +ATIVAN0.5 M1 PO
[2019-11-02 13:05] LABS: URINE BLOOD 2+ (Negative); URINE CLARITY CLEAR; URINE COLOR YELLOW; URINE GLUCOSE-RANDOM TRACE (Negative); URINE KETONES NEGATIVE (Negative); URINE LEUKOCYTES-REFLEX NEGATIVE (Negative); URINE NITRITE-REFLEX NEGATIVE (Negative); URINE PROTEIN NEGATIVE (Negative); URINE SPECIFIC GRAVITY 1.015 (1.005-1.030); URINE UROBILINOGEN 0.2 E.U./dl (0.2-1.0)
[2019-11-02 13:15] LABS: ICTOTEST (BILI CONFIRMATORY) Negative (Negative); URINE BILIRUBIN 1+ (Negative)
[2019-11-02 13:19] LABS: ABSOLUTE BASOPHILS 0.1 thou/uL (0.0-0.2); ABSOLUTE EOSINOPHILS 0.1 thou/uL (0.0-0.7); ABSOLUTE LYMPHOCYTES 1.5 thou/uL (0.8-5.3); ABSOLUTE MONOCYTES 0.4 thou/uL (0.0-1.2); ABSOLUTE NEUTROPHILS 2.4 thou/uL (1.6-8.1); BASOPHILS 1.4 %; EOSINOPHILS 2.5 %; HEMATOCRIT 47.8 % (37.0-47.0); HEMOGLOBIN 16.1 gm/dL (12.0-15.0); LYMPHOCYTES 33.3 %; MCH 31.7 pg (26.0-34.0); MCHC 33.8 g/dL (28.0-37.0); MCV 93.7 fL (80.0-100.0); MONOCYTES 9.1 %; MPV 8.5 fl. (7.2-11.1); NUCLEATED RBCS 1 /100WBC; PLATELET COUNT* 208 thou/uL (150-400); POLYS 53.7 %; RBC 5.09 mil/uL (4.20-5.00); RDW-CV 14.6 % (10.5-14.5); WBC 4.5 thou/uL (4.0-11.0)
[2019-11-02 13:23] LABS: BACTERIA-REFLEX 1-9 Few /HPF (None Seen); CRYSTALS None Seen /LPF (None Seen); HYALINE CASTS 4-10 Moderate /LPF (None Seen); MUCUS None Seen strn/LPF (None Seen); SQUAMOUS 0-3 Few /LPF (0-3); URINE RBC 0-2 Rare /HPF (0-2); URINE WBC-REFLEX 0-5 Rare /HPF (0-5)
[2019-11-02 13:32] LABS: CALCIUM 8.8 mg/dL (8.5-10.1); CREATININE 1.4 mg/dL (0.6-1.3); POTASSIUM 4.8 mmol/L (3.5-5.1)
[2019-11-02 13:35] LABS: APTT 27.9 Seconds (25.0-31.3); INR 1.2; PROTIME 11.9 Seconds (9.20-11.50)
[2019-11-02 13:48] LABS: ALBUMIN 2.4 g/dL (3.4-5.0); CK-MB MASS 9.5 ng/mL (<0.5-3.6); TOTAL BILIRUBIN 0.4 mg/dL (<0.1-1.0); TOTAL PROTEIN 6.5 g/dL (6.4-8.2)
--- NOTE | 2019-11-02 15:35 | EKG ---
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 Supervisor: ANASTASIIA : 1930 Requested By: Alvarado Handley Order Number: [id number] MD: Ajith Gaston Measurements Intervals [place] Rate: 63 P: 0 GA: 122 QRS: -59 QRSD: 97 T: 39 QT: 478 QTc: 490 Interpretive Statements Sinus rhythm LAD, 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
[2019-11-02 16:00] VITALS: BP 185/89
== END 2019-11-02 16:02 | disposition home or self-care (01) ==
LOC: M.ERS 12:33
PROVIDERS: Family Medicine
DX: R41.82 Altered mental status, unspecified (principal); L89.519 Pressure ulcer of right ankle, unspecified stage; L89.309 Pressure ulcer of unspecified buttock, unspecified stage; E11.22 Type 2 diabetes mellitus with diabetic chronic kidney disease; E03.9 Hypothyroidism, unspecified; N18.9 Chronic kidney disease, unspecified; M81.0 Age-related osteoporosis without current pathological fracture; Z88.0 Allergy status to penicillin